=== PATIENT | female | born 1970 | race Caucasian/White ===

== ENCOUNTER → 2016-10-28 | Outpatient (CLI) | payer OTHER | LOC: FIMAGING 09:12 | DX: Z12.31 Encounter for screening mammogram for malignant neoplasm of breast (principal) | CPT/HCPCS: G0202 ==

== ENCOUNTER → 2017-07-06 | Outpatient (CLI) | payer OTHER | LOC: BMCIMAGING 14:31 | PROVIDERS: ATTEND Family Medicine | DX: J18.9 Pneumonia, unspecified organism (principal) ==

== ENCOUNTER → 2017-07-19 | Outpatient (CLI) | payer OTHER | LOC: BMCIMAGING 08:42 | PROVIDERS: ATTEND Family Medicine | DX: Z09 Encounter for follow-up examination after completed treatment for conditions other than malignant neoplasm (principal) ==

== ENCOUNTER → 2017-07-19 | Outpatient (CLI) | payer OTHER | LOC: FIMAGING 12:34 | PROVIDERS: ATTEND Family Medicine | DX: M79.662 Pain in left lower leg (principal) ==

== ENCOUNTER → 2017-10-30 | Outpatient (CLI) | payer OTHER | LOC: FIMAGING 15:02 | PROVIDERS: ATTEND Family Medicine | DX: N63.21 Unspecified lump in the left breast, upper outer quadrant (principal) ==

== ENCOUNTER → 2017-11-08 | Outpatient (CLI) | payer OTHER ==
[~2017-11-08] MED LIST: BUPIVACAINE 0.5% 30 ML SDV ONE; LIDOCAINE 1% 300 MG/30 ML SDV ONE; THROMBIN (BOVINE) 5,000 UNIT VIAL TP ONE
== END ==
LOC: FIMAGING 07:21
PROVIDERS: ATTEND Family Medicine
PROC: 0HBU3ZX Excision of Left Breast, Percutaneous Approach, Diagnostic (ICD-10-PCS; principal; 2017-11-08)
DX: N60.32 Fibrosclerosis of left breast (principal); R92.0 Mammographic microcalcification found on diagnostic imaging of breast

== ENCOUNTER → 2017-11-17 | Outpatient (CLI) | payer OTHER ==
[~2017-11-17] MED LIST changes: -BUPIVACAINE 0.5% 30 ML SDV ONE; +GADOBUTROL 10 ML VIAL IVP ONE; -LIDOCAINE 1% 300 MG/30 ML SDV ONE; -THROMBIN (BOVINE) 5,000 UNIT VIAL TP ONE
== END ==
LOC: FIMAGING 11:59
PROVIDERS: ATTEND Family Medicine
DX: N63.20 Unspecified lump in the left breast, unspecified quadrant (principal); N63.10 Unspecified lump in the right breast, unspecified quadrant; L76.32 Postprocedural hematoma of skin and subcutaneous tissue following other procedure
CPT/HCPCS: 0159T; 77059; A9585; C8908

== ENCOUNTER → 2017-11-30 | Outpatient (CLI) | payer OTHER ==
[~2017-11-30] MED LIST changes: +BUPIVACAINE 0.5% 30 ML SDV ONE; +FLUMAZENIL 0.5 MG/5 ML MDV IVP PRN; +LIDOCAINE 1% 5 ML SDV ONE; +MEPERIDINE 25 MG/ML SYR IVP PRN; +MIDAZOLAM 2 MG/2 ML VIAL IVP PRN; +NA BICARBONATE 50 MEQ/50 ML VIAL ONE; +NALOXONE HCL 0.4 MG/ML INJ IVP PRN; +NS 1,000 ML IV SCH; +ONDANSETRON 4 MG/2 ML VIAL IVP ONE; +fentaNYL 100 MCG/2 ML INJ IVP PRN
--- NOTE | 2017-11-30 10:04 | PDGENHP ---
History & Physical Chief Complaint: left breast mass History of Present Illness: left breast mass Cardiorespiratory Assessment: heart regular, lungs clear
--- NOTE | 2017-11-30 10:05 | PDPROPOC ---
Sedation Plan of Care Sedation Plan of Care: vital signs stable, mental status noted, patient educated of risks, benefits, alternatives, patient can tolerate sedation ASA Classification: ASA 1 Planned drugs: fentanyl, midazolam Mallampati Score: Class 1 Mallampati Reference Image: Patient passed 3-3-2 rule?: Yes
[2017-11-30 10:07] VITALS: BP 129/91
== END ==
LOC: FIMAGING 07:57
PROVIDERS: ATTEND Family Medicine
PROC: 0HBU3ZX Excision of Left Breast, Percutaneous Approach, Diagnostic (ICD-10-PCS; principal; 2017-11-30)
DX: C50.412 Malignant neoplasm of upper-outer quadrant of left female breast (principal)
CPT/HCPCS: A9585; J2250; J2310; J3010

== ENCOUNTER → 2017-12-14 | Outpatient (CLI) | payer OTHER ==
[~2017-12-14] MED LIST changes: -ONDANSETRON 4 MG/2 ML VIAL IVP ONE; +THROMBIN (BOVINE) 5,000 UNIT VIAL TP ONE
--- NOTE | 2017-12-14 10:35 | PDGENHP ---
History & Physical Chief Complaint: breast cancer History of Present Illness: abnormal mri, needs mri guided breast bx to evaluate for contralateral disease Cardiorespiratory Assessment: heart regular, lungs clear
[2017-12-14 12:54] VITALS: BP 137/74
== END ==
LOC: FIMAGING 08:05
PROVIDERS: ATTEND Family Medicine
PROC: 0HBT3ZX Excision of Right Breast, Percutaneous Approach, Diagnostic (ICD-10-PCS; principal; 2017-12-14)
DX: C50.911 Malignant neoplasm of unspecified site of right female breast (principal)
CPT/HCPCS: A9585; J2250; J2310; J3010

== ENCOUNTER 2018-01-23 06:15 | Day surgery (SDC) | payer OTHER ==
[2018-01-23] MEDS ORDERED: LIDOCAINE 1% 300 MG/30 ML SDV ONE ×2 (07:35→10:32)
[2018-01-23] MEDS ORDERED: ceFAZolin 2 GM/DEXTROSE 100 ML IV ONE (08:15)
[2018-01-23] MEDS ORDERED: NA BICARBONATE 50 MEQ/50 ML VIAL ONE (09:08)
[2018-01-23] MEDS ORDERED: BUPIVACAINE/EPI 0.5% 30 ML SDV ONE (09:08)
[2018-01-23] MEDS ORDERED: METHYLENE BLUE 0.5% 50 MG/10 ML AMP ONE (09:09)
[2018-01-23] MEDS ORDERED: LIDO/EPI 1% **for epidural** 30 ML SDV ONE (09:09)
[2018-01-23] MEDS ORDERED: LR 1,000 ML IV ONE (09:29)
--- NOTE | 2018-01-23 09:44 | PDGENHP ---
History & Physical Chief Complaint: Bilateral breast CA History of Present Illness: Left breast mass found on exam. MRI biopsy of both sides shows breast CA. Patient is asymptomatic. Pertinent Past, Social, Family History: Grave's, asthma. NS Relevant Physical Exam: Alert, NAD. RRR CTA B. B needle loc placed Cardiorespiratory Assessment: As above. Risks/benefits reviewed for B lumpectomy, sentinel node biopsy, poss ax dissection. Questions answered.
[2018-01-23] MEDS ORDERED: SCOPOLAMINE HYDROBROMIDE 1 MG/3 DAYS PATCH TD ONE (10:07)
[2018-01-23] MEDS ORDERED: MIDAZOLAM 2 MG/2 ML VIAL ONE (10:12)
[2018-01-23] MEDS ORDERED: fentaNYL 100 MCG/2 ML INJ ONE ×2 (10:12→10:34)
[2018-01-23] MEDS ORDERED: PROPOFOL/EMULSION 500 MG/50 ML BOTTLE IV ONE (10:12)
[2018-01-23] MEDS ORDERED: ACETAMINOPHEN 500 MG TAB PO PRN (10:54)
[2018-01-23] MEDS ORDERED: HYDROCODONE/APAP 5/325 TAB PO PRN (10:54)
[2018-01-23] MEDS ORDERED: NALOXONE HCL 0.4 MG/ML INJ IVP PRN (10:54)
[2018-01-23] MEDS ORDERED: PROMETHAZINE HCL 25 MG/ML INJ IVP PRN (10:54)
[2018-01-23] MEDS ORDERED: METOCLOPRAMIDE 10 MG/2 ML VIAL IVP PRN (10:54)
[2018-01-23] MEDS ORDERED: fentaNYL 100 MCG/2 ML INJ IVP PRN (10:54)
[2018-01-23] MEDS ORDERED: MEPERIDINE 25 MG/0.5 ML AMP IVP PRN (10:54)
[2018-01-23] MEDS ORDERED: ALBUTEROL 3 ML DEYVIAL IH PRN (10:54)
[2018-01-23] MEDS ORDERED: DEXAMETHASONE 4 MG/ML VIAL IVP PRN (10:54)
[2018-01-23] MEDS ORDERED: LR 500 ML IV PRN (10:54)
[2018-01-23] MEDS ORDERED: ONDANSETRON 4 MG/2 ML VIAL IVP PRN (10:54)
--- NOTE | 2018-01-23 10:54 | PDANEPAE ---
ANE Past Medical History - Cardiovascular History Hx Hypertension: Yes Hx Arrhythmias: No Hx Chest Pain: No Hx Coronary Artery / Peripheral Vascular Disease: No Hx CHF / Valvular Disease: No Hx Palpitations: No Cardiovascular History Comment: EXTRA HEART BEAT OCCAS. NO MEDS FOR MILD ELEV BP OCCAS - Pulmonary History Hx COPD: No Hx Asthma/Reactive Airway Disease: No Hx Recent Upper Respiratory Infection: No Hx Oxygen in Use at Home: No Hx Sleep Apnea: No Sleep Apnea Screening Result - Last Documented: Negative Pulmonary History Comment: PNA in June 2017M - Neurologic History Hx Cerebrovascular Accident: No Hx Seizures: No Hx Dementia: No Neurologic History Comment: MIGRAINES OCULAR X2 MTHLY - Endocrine History Hx Diabetes: No Endocrine History Comment: Graves disease during and normalized after giving - Renal History Hx Renal Disorders: No - Liver History Hx Hepatic Disorders: No - Neurological & Psychiatric Hx Hx Neurological and Psychiatric Disorders: No Neurological / Psychiatric History Comment: anxiety - Cancer History Hx Cancer: No - Congenital Disorder History Hx Congenital Disorders: No - GI History Hx Gastrointestinal Disorders: No - Other Health History Other Health History: PSORIASIS - Chronic Pain History Chronic Pain: No - Surgical History Prior Surgeries: wisdom teeth. BREAST BX ANE Review of Systems Review of Systems: - Exercise capacity METS (RN): 5 METS ANE Patient History - Allergies Allergies/Adverse Reactions: tape Allergy (Intermediate, Uncoded 12/14/17 09:03) tegaderm Allergy (Uncoded 12/15/17 14:28) blisters and redness - Home Medications Home Medications: Ibuprofen 600 mg PO Q6 PRN 11/23/17 [Last Taken 1 Week Ago ~01/16/18] Reclipsen 28 Day Tablet 1 tab PO DAILY 11/23/17 [Last Taken 1 Week Ago ~01/16/18 ] Tylenol 325mg (*) 325 mg PO Q6 PRN 11/23/17 [Last Taken 1 Week Ago ~01/16/18] Herbals/Supplements -Info Only 01/03/18 [Last Taken 1 Week Ago ~01/16/18] - NPO status NPO Since - Liquids (Date): 01/23/18 NPO Since - Liquids (Time): 00:00 NPO Since - Solids (Date): 01/22/18 NPO Since - Solids (Time): 18:00 - Smoking Hx Smoking Status: Never smoked - Family Anes Hx Family Hx Anesthesia Complications: NEG ANE Labs/Vital Signs - Vital Signs Blood Pressure: 147/85 Heart Rate: 70 Respiratory Rate: 0 O2 Sat (%): 100 Height: 167.64 cm Weight: 77.111 kg ANE Physical Exam - Airway Neck exam: FROM Mallampati Score: Class 1 Mouth exam: normal dental/mouth exam - Pulmonary Pulmonary: no respiratory distress, no rales or rhonchi, clear to auscultation - Cardiovascular Cardiovascular: regular rate and rhythym, no murmur, rub, or gallop - ASA Status ASA Status: I ANE Anesthesia Plan Anesthesia Plan: GA w LMA
[2018-01-23] MEDS ORDERED: PROPOFOL 200 MG/20 ML VIAL ONE (11:22)
[2018-01-23] MEDS ORDERED: LIDOCAINE 2% 5 ML SDV ONE (11:22)
[2018-01-23] MEDS ORDERED: ONDANSETRON 4 MG/2 ML VIAL ONE (11:22)
--- NOTE | 2018-01-23 12:34 | POSTOPPROG ---
Post Op Note Date of Operation: 01/23/18 Surgeon: Raul Noel Convertible Sofa Bedspring Tester: Michael De Santiago Anesthesiologist: Dr. Ordoñez Anesthesia: LMA Pre-op Diagnosis: B breast CA Post-op Diagnosis: same Procedure: B NL lumpectomy, B SLN biopsy Inf/Abcess present in the surg proc area at time of surgery?: No EBL: Minimal
--- NOTE | 2018-01-23 12:59 | POSTANESTH ---
Post Anesthetic Evaluation Cardiovascular Status: Normal, Stable, Similar to Pre-Op Cond Respiratory Status: Normal, Stable, Similar to Pre-op Cond. Level of Consciousness/Mental Status: Moderately Sleepy Pain Control: Adequate, Prn Tx Ordered Nausea/Vomiting Control: Adequate, Prn Tx Ordered Complications Possibly Related to Anesthesia: None Noted
--- NOTE | 2018-01-23 13:55 | GOP ---
[f rep st] OPERATIVE REPORT DATE OF OPERATION: 01/23/2018 SURGEON: Gurjit Noel MD ATHLETIC SCOUT: Jaime De Santiago, SALES SERVICE MANAGER, [facility] [employer], whose presence was requested by me and medically necessary for the safe and timely completion of this case. ANESTHESIA: Laryngeal mask anesthesia. ANESTHESIOLOGIST: Dr. Paulina Ordoñez. PREOPERATIVE DIAGNOSIS: Bilateral breast cancer. POSTOPERATIVE DIAGNOSIS: Bilateral breast cancer. PROCEDURE PERFORMED: 1. Bilateral sentinel lymph node biopsy. 2. Bilateral needle localization lumpectomy. FINDINGS: Both frozen sections were negative for malignancy on the sentinel node specimens. Clip wa s identified in the left specimen, but not the right. ESTIMATED BLOOD LOSS: 30 cc. INDICATIONS: A 47-year-old female with a history of MRI biopsy-proven bilateral breast cancer. Risk s and benefits of procedure were discussed with the patient, questions were answered. She wished to proceed. DESCRIPTION OF PROCEDURE: The patient was in the supine position. After induction of adequate laryn geal mask anesthesia, the patient was prepped and draped in a standard surgical fashion. Both sides were approached similarly. The sentinel nodes were addressed first. After confirming radio activity with the gamma probe, the a xillary area was infiltrated with 1% lidocaine, 0.5% Marcaine for local anesthesia. An oblique incis ion was made with #15 blade and carried down to the subcu tissue with Bovie cautery and blunt dissect ion. The axillary fascia was entered and the axillary fat identified. Using the Neoprobe, the lymph node was identified. A suture was placed through the lymph node for traction. Apparent lymphatics were clipped and then divided sharply. The lymph node was then removed and again confirmed to be rad ioactive with the gamma probe. It was then sent to Pathology for frozen section. Frozen section on both specimens proved negative for metastasis. Therefore, the area was thoroughly irrigated and aspi rated. Cautery was used for hemostasis. The subcutaneous tissue was approximated in layers using 3- 0 Vicryl in interrupted fashion. Skin was closed with 4-0 Monocryl subcuticular stitch. Wound was d ressed with Dermabond and segregated from the remainder of the procedure. The needle localized lumpectomies were also addressed similarly. A curvilinear incision was made wit h #15 blade after injecting 1% lidocaine, 0.5% Marcaine for local anesthesia. This was carried down to the subcutaneous tissue with Bovie cautery and blunt dissection. Sharp dissection was then used t o remove the masses in their entirety. The painting system was used to jeb the margins on each side ; however, on the left side, the anterior and posterior colors were switched and posterior was marked with the green and the anterior marked with the black. These were sent for radiological imaging. O f note on the right side, the wire removed prematurely. Upon sending of the specimen, the clip could not be identified; however, hematoma had been noted at the site of the wire implantation. An additi onal posterior margin was taken, however, this was down to the fascia. No other lesions were identif ied. The cavities were then thoroughly irrigated and aspirated. Hemostasis was achieved with cautery. Ma rking clips were placed in each cavity. The subcutaneous tissues were then approximated using 3-0 Vi cryl in interrupted fashion. Skin was closed with 4-0 Monocryl in a subcuticular stitch. Wounds wer e again dressed with Dermabond. Patient was then extubated and taken to PACU in stable condition. COMPLICATIONS: None. DRAINS: None. /[id number]/MODL
[2018-01-23] MEDS ORDERED: HYDROCODONE/APAP 5/325 TAB ONE (14:04)
[2018-01-23 14:53] VITALS: BP 130/73
== END 2018-01-23 14:55 | disposition home or self-care (01) ==
LOC: FSGY 06:15
PROVIDERS: ATTEND Surgery
PROC: 07B50ZX Excision of Right Axillary Lymphatic, Open Approach, Diagnostic (ICD-10-PCS; principal; 2018-01-23 10:00)
PROC: 0HBV0ZZ Excision of Bilateral Breast, Open Approach (ICD-10-PCS; principal; 2018-01-23 10:00)
PROC: 07B60ZX Excision of Left Axillary Lymphatic, Open Approach, Diagnostic (ICD-10-PCS; principal; 2018-01-23 10:00)
PROC: 0HHT3YZ Insertion of Other Device into Right Breast, Percutaneous Approach (ICD-10-PCS; 2018-01-23 10:00)
PROC: 0HHU3YZ Insertion of Other Device into Left Breast, Percutaneous Approach (ICD-10-PCS; 2018-01-23 10:00)
PROC: 3E0W3HZ Introduction of Radioactive Substance into Lymphatics, Percutaneous Approach (ICD-10-PCS; 2018-01-23 10:00)
DX: C50.912 Malignant neoplasm of unspecified site of left female breast (principal); C50.911 Malignant neoplasm of unspecified site of right female breast; I10 Essential (primary) hypertension
CPT/HCPCS: 19125; 19281; 38525; 38792; 76098; A9520; J0690; J2250; J2405; J2704; J3010; Q9968

== ENCOUNTER → 2018-11-07 | Outpatient (CLI) | payer OTHER | LOC: FIMAGING 09:39 | PROVIDERS: ATTEND Internal Medicine Hematology & Oncology | DX: C50.911 Malignant neoplasm of unspecified site of right female breast (principal); C50.912 Malignant neoplasm of unspecified site of left female breast ==